=== PATIENT | female | born 1980 | race American Indian/Alaskan Native ===

== ENCOUNTER 2018-11-07 01:53 | Inpatient (IN) | payer OTHER, MEDICAID ==
--- NOTE | 2018-11-07 02:09 | History and Physical Report ---
History of Present Illness Date of examination: 11/07/18 (pt presents with PPROM @ 34w6d) History of present illness: EDC Confirmation: 12/13/2018 Gestational Age: 11 2/7 weeks Past History : 5 Term Births: 3 Premature Births: 0 Living Children: 3 Para: 3 Mult. Births: 0 Prev : 0 Aborta: 1 Elect. Ab: 0 Spont. Ab: 1 Ectopics: 0 # 1 Delivery date: 1995 Weeks Gestation: 37 labor: no Delivery type: Delivery location: [facility] Sex: Female weight: 5#3 # 2 Delivery date: 1999 Weeks Gestation: 40 labor: no Delivery type: Sex: Female weight: 6#14 # 3 Delivery date: 2004 Weeks Gestation: 37 labor: no Delivery type: Infant Sex: Female weight: 6#7 # 4 Delivery date: 2013 Weeks Gestation: 14 Delivery type: SAB Infant Sex: Male Comments: IUFD - D&C for placenta Past Medical History: Negative Past Medical History Past Surgical History: Salpingo-oophorectomy left side, 10/2017 Past Medical History 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 of genital herpes: yes Partner hx. of genital herpes: no Rash, Viral, or Febrile illness since last LMP? no Varicella/Chicken Pox Status: Previous Disease TB Risk: no Genetic History ADVANCED MATERNAL AGE Congenital Heart Defect: Mom: no Dad: no Stephany Disease: Mom: no Dad: no Thalassemia Mom: no Dad: no Neural Tube Defect Mom: no Dad: no Down's Syndrome Mom: no Dad: no Derik-Sachs Mom: no Dad: no Sickle Cell Disease/Trait Mom: no Dad: no Hemophilia Mom: no Dad: no Muscular Dystrophy Mom: no Dad: no Cystic Fibrosis Mom: no Dad: no [place] Chorea Mom: no Dad: no Mental Retardation Mom: no Dad: no Fragile X Mom: no Dad: no Other Genetic/Chromosomal Disorder Mom: no Dad: no Child w/other defect Mom: no Dad: no Enviromental Exposures Xray Exposure: no Medication, drug, or alcohol use since LMP: no Chemical/Other Exposure: no Exposure to Cat Liter: no Hx of Parvovirus (Fifth Disease): no Occupational Exposure to Children: none Active Medications (reviewed today): None Current Allergies (reviewed today): No known allergies Past History - Obstetrical History Expected Date of Delivery: 12/13/18 Actual Gestation: 34 Week(s) 6 Day(s) : 5 Para: 3 Hx # Term Pregnancies: 3 Number of Pregnancies: 0 Spontaneous Abortions: 1 (14wIUFD; D&C for placenta) Induced : 0 Number of Living Children: 3 Medications and Allergies Allergies Allergy/AdvReac Type Severity Reaction Status Date / Time No Known Allergies Allergy Verified 05/05/18 01:02 Home Medications Medication Instructions Recorded Confirmed Last Taken Type Vit-Fe Fumar-FA [ 1 tab PO QDAY 11/07/18 11/07/18 11/06/18 05:00 History Vitamin] Ranitidine HCl [Zantac] 150 mg PO QDAY 11/07/18 11/07/18 11/06/18 05:00 History - Vital Signs Vital signs: Vital Signs Pulse BP 74 112/59 11/07/18 02:03 11/07/18 02:03 Temp Pulse Resp BP Pulse Ox 74 112/59 11/07/18 02:03 11/07/18 02:03 - Physical Exam Breasts: Positive: deferred Cardiovascular: Regular rate, Normal S1, Normal S2 Lungs: Positive: Normal air movement Abdomen: Positive: normal appearance, soft, normal bowel sounds. Negative: distention, tenderness Genitourinary (Female): Positive: normal external genitalia Vulva: both: normal Vagina: Positive: normal moisture. Negative: discharge Cervix: Negative: lesion, discharge Uterus: Positive: normal size, normal contour Adnexa: both: normal Anus/Rectum: Positive: normal perianal skin, heme negative. Negative: rectal mass, hemorrhoids Extremities: Positive: normal Deep Tendon Reflex Grade: Normal +2 - Obstetrical FHR: category 1 Uterine Contraction Monitor Mode: External Cervical Dilatation: 1.5 Cervical Effacement Percentage: 40 station: -3 Uterine Contraction Pattern: Irregular Uterine Tone Measurement Phase: Resting Uterine Contraction Intensity: Mild Results All other labs normal. HBsAg Screen Negative Negative *1 RPR Non Reactive Non Reactive *2 Rubella Antibodies, IgG 5.31 index Immune >0.99 *3 Non-immune <0.90 Equivocal 0.90 - 0.99 Immune >0.99 ABO Grouping O *4 Rh Factor Positive *5 Please note: Prior records for this patient's ABO / Rh type are not available for additional verification. Antibody Screen See Final Results Negative *6 Tests: (2) Ab Scr+Antibody ID ([id number]) ! Antibody Screen [A] Positive Negative *7 ! Antibody Id. #1 Anti-Jk(a) Lara *8 ! Romario Titer #1 1 *9 If a numerical titer result has been reported, please note that this result is the reciprocal value of titer results formerly reported as 1:2,1:4, 1:8, etc. These results are now reported as 2, 4, 8, etc. The [employer] has recommended this change in titer reporting formats to simply reflect the reciprocal value of the titer. ! Antibody Id. #2 <No Reported Value> *10 ! Romario Titer #2 <No Reported Value> *11 Tests: (3) Profile I ([id number]) WBC 5.2 x10E3/uL 3.4-10.8 *12 RBC 4.12 x10E6/uL 3.77-5.28 *13 Hemoglobin [L] 10.7 g/dL 11.1-15.9 *14 Hematocrit [L] 33.5 % 34.0-46.6 *15 MCV 81 fL 79-97 *16 MCH [L] 26.0 pg 26.6-33.0 *17 MCHC 31.9 g/dL 31.5-35.7 *18 RDW 13.6 % 12.3-15.4 *19 Platelets 233 x10E3/uL 150-379 *20 Neutrophils 55 % Not Estab. *21 Lymphs 32 % Not Estab. *22 Monocytes 11 % Not Estab. *23 Eos 1 % Not Estab. *24 Basos 1 % Not Estab. *25 ! Immature Cells <No Reported Value> *26 Neutrophils (Absolute) 2.9 x10E3/uL 1.4-7.0 *27 Lymphs (Absolute) 1.7 x10E3/uL 0.7-3.1 *28 Monocytes(Absolute) 0.6 x10E3/uL 0.1-0.9 *29 Eos (Absolute) 0.0 x10E3/uL 0.0-0.4 *30 Baso (Absolute) 0.0 x10E3/uL 0.0-0.2 *31 ! Immature Granulocytes 0 % Not Estab. *32 ! Immature Grans (Abs) 0.0 x10E3/uL 0.0-0.1 *33 ! NRBC <No Reported Value> *34 Hematology Comments: <No Reported Value> *35 Tests: (4) AFP, Serum, Open Spina Bifida ([id number]) Results Report *36 ! Test Results: [A] *Screen Positive* *37 Gest. Age on Collection Date 15.4 weeks *38 ! Gestat. Age Based On JAIMEE *39 12/13/2018 Recalculations are not recommended when gestational dating by LMP and ultrasound are within 10 days. ! Maternal Age At JAIMEE 40.3 yr *40 ! Race Black *41 ! Weight 154 lbs *42 ! Insulin Dep Diabetes No *43 ! Multiple Gestation No *44 AFP Value 101.9 ng/mL *45 AFP MoM 3.29 *46 ! OSBR Risk 1 IN 147 *47 ! Interpretation SCOTT *48 Interpretation: Screen Positive for OSB This patient is at increased risk to have a baby with open spina bifida (OSB). The AFP MoM is calculated based on the gestational age provided, and is elevated. MS-AFP can identify up to 80% of open neural tube defects. Closed neural tube defects and some open defects may not be detected by this test. This test does not screen for Down syndrome or Trisomy 18. Recommendations: 1. Targeted ultrasound is recommended to verify gestational age, viability, number of fetuses, and to rule out anomalies. 2. If AFP is less than 3.0 MoM, repeating the AFP is an option to rule out transient elevations. 3. If this is a second elevation, or the AFP is greater than or equal to 3.0 MoM, targeted ultrasound, genetic counseling and amniocentesis are appropriate options. ! Comment: [facility] *49 Sheela Preston, Ph.D., [facility] Principal Genetics Licensed And Certified Midwife References: Available Upon Request. Multiples Of Median Cutoffs For AFP Elevations Perkins 2.5 Black 2.8 IDD 2.0 Twins 4.5 Abbreviation Definitions IDD - Insulin Dep Diabetes OSBR - Open Spina Bifida Risk For further inquiries contact [facility] at [phone]. Tests: (5) Panel [id number] ([id number]) HIV Screen 4th Generation wRfx Non Reactive Non Reactive *50 Tests: (6) HCV Ab w/Rflx to Verification ([id number]) ! HCV Ab 0.1 s/co ratio 0.0-0.9 *51 Tests: (7) Comment: ([id number]) ! Comment: [facility] *52 Non reactive HCV antibody screen is consistent with no HCV infection, unless recent infection is suspected or other evidence exists to indicate HCV infection. Tests: (8) Urine Culture, Routine ([id number]) Urine Culture, Routine Final report *53 Tests: (9) Result ([id number]) ! Result 1 No growth *54 Assessment and Plan 38 yo @ 34w6d with c/o SROM this AM 0100. RN called pt 1-2,6-,-2 with clear fluid coming from vagina. Orders placed US ordered for BOB and position.
[2018-11-07] MEDS ORDERED: MINERAL OIL PO PRN (02:16)
[2018-11-07] MEDS ORDERED: XYLOCAINE 2% INFILTRATI ONE (02:16)
[2018-11-07] MEDS ORDERED: SUBLIMAZE IV PRN (02:16)
[2018-11-07] MEDS ORDERED: AMPICILLIN/NS 2 GM/100 ML 2 GM/100 ML BAG IV ONE (02:16)
[2018-11-07] MEDS ORDERED: ZOFRAN IV PRN (02:16)
[2018-11-07] MEDS ORDERED: BRETHINE SUB-Q PRN (02:16)
[2018-11-07] MEDS ORDERED: PITOCin/NS 20 UNIT/1000ML DRIP 20 UNITS/1,000 ML BAG IV SCH (03:00)
[2018-11-07] MEDS ORDERED: CELESTONE SOLUSPAN IM SCH (03:05)
--- NOTE | 2018-11-07 04:48 | Progress Note ---
Assessment and Plan US done BOB 11.4, vertex cervical length 4cm Speculum exam done Negative pooling Nitrazine equivocal Ferning negative. Explained all findings to pt. Reassured Will continue IVFs, d/c ABX and 2nd dose BMZ. Will repeat BOB @ noon. Subjective - Subjective Date of service: 11/07/18 (no ctx noted on EFM) Principal diagnosis: IUP @ 34w6d with possible SROM Interval history: EDC Confirmation: 12/13/2018 Gestational Age: 11 2/7 weeks Past History : 5 Term Births: 3 Premature Births: 0 Living Children: 3 Para: 3 Mult. Births: 0 Prev : 0 Aborta: 1 Elect. Ab: 0 Spont. Ab: 1 Ectopics: 0 # 1 Delivery date: 1995 Weeks Gestation: 37 labor: no Delivery type: Delivery location: [facility] Infant Sex: Female weight: 5#3 # 2 Delivery date: 1999 Weeks Gestation: 40 labor: no Delivery type: Sex: Female weight: 6#14 # 3 Delivery date: 2004 Weeks Gestation: 37 labor: no Delivery type: Infant Sex: Female weight: 6#7 # 4 Delivery date: 2013 Weeks Gestation: 14 Delivery type: SAB Sex: Male Comments: IUFD - D&C for placenta Past Medical History: Negative Past Medical History Past Surgical History: Salpingo-oophorectomy left side, 10/2017 Past Medical History 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 of genital herpes: yes Partner hx. of genital herpes: no Rash, Viral, or Febrile illness since last LMP? no Varicella/Chicken Pox Status: Previous Disease TB Risk: no Genetic History ADVANCED MATERNAL AGE Congenital Heart Defect: Mom: no Dad: no Stephany Disease: Mom: no Dad: no Thalassemia Mom: no Dad: no Neural Tube Defect Mom: no Dad: no Down's Syndrome Mom: no Dad: no Derik-Sachs Mom: no Dad: no Sickle Cell Disease/Trait Mom: no Dad: no Hemophilia Mom: no Dad: no Muscular Dystrophy Mom: no Dad: no Cystic Fibrosis Mom: no Dad: no [place] Chorea Mom: no Dad: no Mental Retardation Mom: no Dad: no Fragile X Mom: no Dad: no Other Genetic/Chromosomal Disorder Mom: no Dad: no Child w/other defect Mom: no Dad: no Enviromental Exposures Xray Exposure: no Medication, drug, or alcohol use since LMP: no Chemical/Other Exposure: no Exposure to Cat Liter: no Hx of Parvovirus (Fifth Disease): no Occupational Exposure to Children: none Active Medications (reviewed today): None Current Allergies (reviewed today): No known allergies Patient reports: movement normal Objective - Vital Signs Vital Signs: Vital Signs - 12hr 11/07/18 11/07/18 11/07/18 02:03 02:05 02:06 Temperature 98.9 F Pulse Rate 74 78 Respiratory 16 Rate Blood Pressure 112/59 O2 Sat by Pulse 100 Oximetry 11/07/18 11/07/18 11/07/18 02:11 02:16 02:21 Temperature Pulse Rate 79 76 73 Respiratory Rate Blood Pressure O2 Sat by Pulse 100 98 99 Oximetry 11/07/18 11/07/18 11/07/18 02:26 02:51 02:55 Temperature Pulse Rate 74 70 73 Respiratory Rate Blood Pressure O2 Sat by Pulse 98 97 98 Oximetry 11/07/18 11/07/18 11/07/18 03:00 03:05 03:11 Temperature Pulse Rate 83 65 72 Respiratory Rate Blood Pressure O2 Sat by Pulse 98 99 98 Oximetry 11/07/18 11/07/18 11/07/18 03:16 03:19 03:20 Temperature Pulse Rate 78 70 77 Respiratory Rate Blood Pressure 96/52 O2 Sat by Pulse 98 97 Oximetry 11/07/18 11/07/18 11/07/18 03:25 03:36 03:37 Temperature Pulse Rate 102 H 72 66 Respiratory Rate Blood Pressure O2 Sat by Pulse 99 92 99 Oximetry 11/07/18 11/07/18 11/07/18 03:42 03:43 03:47 Temperature Pulse Rate 106 H 87 82 Respiratory Rate Blood Pressure O2 Sat by Pulse 100 69 L 100 Oximetry 11/07/18 11/07/18 11/07/18 03:52 03:56 04:02 Temperature Pulse Rate 103 H 64 77 Respiratory Rate Blood Pressure O2 Sat by Pulse 99 99 99 Oximetry - Exam Breasts: deferred Cardiovascular: Regular rate Lungs: Normal air movement Abdomen: Present: normal appearance, soft. Absent: distention, tenderness Vulva: both: normal (milky clear d/c noted on perineum) Uterus: Present: normal FHR: auscultation normal, category 1 Uterine Contraction Monitor Mode: External Cervical Dilatation: 1.5 (minimal fluid noted; speculum exam) Cervical Effacement Percentage: 60 station: -2 Uterine Contraction Pattern: Irregular Uterine Tone Measurement Phase: Resting Uterine Contraction Intensity: Mild Extremities: normal Deep Tendon Reflex Grade: Normal +2
--- NOTE | 2018-11-07 05:02 | Ultrasound Report ---
EXAM: US OB FOLLOW UP HISTORY: PPROM @ 34 weeks TECHNIQUE: Lozano scale imaging, duplex Doppler and color flow Doppler imaging are performed with a cur vilinear transducer. COMPARISON: None available. FINDINGS: There is a single IUP in cephalic presentation. The estimated heart rate is 138 beats per minut e. No gross anomaly is seen at this time (very limited views of the anatomy). The following biometric measurements are obtained: BPD 8.08 cm (32 weeks 3 days ) HC 31.00 cm (34 weeks 4 days) AC 29.47 cm (33 weeks 3 days) FL 6.38 cm (33 weeks 0 days) The estimated composite gestational age is 33 weeks, 3 days, plus/minus standard deviation. The JAIMEE i s 12/23/2018. The biometric ratios are within normal limits: Cephalic index 76.9; HC/AC 1.05; FL/BPD 79 ; FL/HC 20.6; FL/AC 21.6. The estimated composite gestational age is 2173 g +/-322 g or 4 lbs. 13 oz. +/-11 ounces (12%). There is a posterior placenta, without evidence for placenta previa or abruption. The cervical length is within normal limits, measuring approximately 4.4 cm. There is no evidence for cervical incompete nce. The amniotic fluid index measures 11.4 cm (right upper quadrant 2.6 cm; right lower quadrant 2 cm; le ft lower quadrant 3.1 cm; left upper quadrant 3.8 cm), which is within normal limits. The ovaries are not visualized. No free fluid is seen in the pelvis. IMPRESSION: 1. Single live IUP in cephalic presentation. 2. Estimated gestational age of 33 weeks, 3 days plus/minus standard deviation. The JAIMEE is 12/23/2018. 3. The estimated heart rate is 138 beats per minute. 4. No gross anomaly is seen at this time (Limited views of the anatomy). 5. Posterior placenta without evidence for placental previa or abruption. 6. The amniotic fluid volume is within normal limits. 7. The cervical length is within normal limits, measuring approximately 4.4 cm. 8. The ovaries are not visualized. 9. No free fluid is seen in the pelvis. This document is electronically signed by Michela Cardoza MD., November 07 2018 05:00:26 AM ET
[2018-11-07] MEDS ORDERED: AMPICILLIN/NS 1 GM/50 ML 1 GM/50 ML BAG IV SCH (06:18)
[2018-11-07 11:15] LABS: Bilirubin,Urine NEG (Negative); Blood,Urine NEG (Negative); Color,Urine Yellow (Yellow); Mucus,Urine FEW /HPF
--- NOTE | 2018-11-07 13:38 | Progress Note ---
Assessment and Plan Discussed US findings with pt and her family. They are aware decrease can be from further LOF or may be the difference in tech. Reassured 7 is still wnl. Offered to allow d/c and she could come back @ 24hrs for 2nd dose BMZ or she can remain here receive steroids and have f/u US in AM. Pt request to stay in house. given report and POC. New orders in EMR. Pt is to report any further loss of fluid to RN, report any vaginal bleeding, ctx, or decrease in FM. All questions addressed. Subjective - Subjective Date of service: 11/07/18 (repeat BOB 7.4) Principal diagnosis: IUP @ 34w6d with possible SROM Interval history: EDC Confirmation: 12/13/2018 Gestational Age: 11 2/7 weeks Past History : 5 Term Births: 3 Premature Births: 0 Living Children: 3 Para: 3 Mult. Births: 0 Prev : 0 Aborta: 1 Elect. Ab: 0 Spont. Ab: 1 Ectopics: 0 # 1 Delivery date: 1995 Weeks Gestation: 37 labor: no Delivery type: Delivery location: [facility] Sex: Female weight: 5#3 # 2 Delivery date: 1999 Weeks Gestation: 40 labor: no Delivery type: Infant Sex: Female weight: 6#14 # 3 Delivery date: 2004 Weeks Gestation: 37 labor: no Delivery type: Sex: Female weight: 6#7 # 4 Delivery date: 2013 Weeks Gestation: 14 Delivery type: SAB Infant Sex: Male Comments: IUFD - D&C for placenta Past Medical History: Negative Past Medical History Past Surgical History: Salpingo-oophorectomy left side, 10/2017 Past Medical History 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 of genital herpes: yes Partner hx. of genital herpes: no Rash, Viral, or Febrile illness since last LMP? no Varicella/Chicken Pox Status: Previous Disease TB Risk: no Genetic History ADVANCED MATERNAL AGE Congenital Heart Defect: Mom: no Dad: no Stephany Disease: Mom: no Dad: no Thalassemia Mom: no Dad: no Neural Tube Defect Mom: no Dad: no Down's Syndrome Mom: no Dad: no Derik-Sachs Mom: no Dad: no Sickle Cell Disease/Trait Mom: no Dad: no Hemophilia Mom: no Dad: no Muscular Dystrophy Mom: no Dad: no Cystic Fibrosis Mom: no Dad: no [place] Chorea Mom: no Dad: no Mental Retardation Mom: no Dad: no Fragile X Mom: no Dad: no Other Genetic/Chromosomal Disorder Mom: no Dad: no Child w/other defect Mom: no Dad: no Enviromental Exposures Xray Exposure: no Medication, drug, or alcohol use since LMP: no Chemical/Other Exposure: no Exposure to Cat Liter: no Hx of Parvovirus (Fifth Disease): no Occupational Exposure to Children: none Active Medications (reviewed today): None Current Allergies (reviewed today): No known allergies Patient reports: loss of fluid (pt states she has not had any leaking of fluid since early this morning @ 0800), movement normal Objective - Vital Signs Vital Signs: Vital Signs - 12hr 11/07/18 11/07/18 11/07/18 02:03 02:05 02:06 Temperature 98.9 F Pulse Rate 74 78 Respiratory 16 Rate Blood Pressure 112/59 O2 Sat by Pulse 100 Oximetry 11/07/18 11/07/18 11/07/18 02:11 02:16 02:21 Temperature Pulse Rate 79 76 73 Respiratory Rate Blood Pressure O2 Sat by Pulse 100 98 99 Oximetry 11/07/18 11/07/18 11/07/18 02:26 02:51 02:55 Temperature Pulse Rate 74 70 73 Respiratory Rate Blood Pressure O2 Sat by Pulse 98 97 98 Oximetry 11/07/18 11/07/18 11/07/18 03:00 03:05 03:11 Temperature Pulse Rate 83 65 72 Respiratory Rate Blood Pressure O2 Sat by Pulse 98 99 98 Oximetry 11/07/18 11/07/18 11/07/18 03:16 03:19 03:20 Temperature Pulse Rate 78 70 77 Respiratory Rate Blood Pressure 96/52 O2 Sat by Pulse 98 97 Oximetry 11/07/18 11/07/18 11/07/18 03:25 03:36 03:37 Temperature Pulse Rate 102 H 72 66 Respiratory Rate Blood Pressure O2 Sat by Pulse 99 92 99 Oximetry 11/07/18 11/07/18 11/07/18 03:42 03:43 03:47 Temperature Pulse Rate 106 H 87 82 Respiratory Rate Blood Pressure O2 Sat by Pulse 100 69 L 100 Oximetry 11/07/18 11/07/18 11/07/18 03:52 03:56 04:02 Temperature Pulse Rate 103 H 64 77 Respiratory Rate Blood Pressure O2 Sat by Pulse 99 99 99 Oximetry 11/07/18 11/07/18 11/07/18 04:53 07:30 07:56 Temperature 98.4 F Pulse Rate 62 73 Respiratory 18 Rate Blood Pressure 95/52 96/51 O2 Sat by Pulse Oximetry 11/07/18 11/07/18 11/07/18 10:04 10:57 13:26 Temperature 98.0 F Pulse Rate 83 94 H Respiratory 18 Rate Blood Pressure 118/57 92/56 O2 Sat by Pulse Oximetry - Exam Breasts: deferred Cardiovascular: Regular rate Lungs: Normal air movement Abdomen: Present: normal appearance, soft, normal bowel sounds. Absent: distention, tenderness Vulva: both: normal (perineum is dry @ this time) Uterus: Present: normal FHR: auscultation normal, category 1 Uterine Contraction Monitor Mode: External Uterine Contraction Pattern: Irregular Uterine Tone Measurement Phase: Resting Uterine Contraction Intensity: Mild Extremities: normal Deep Tendon Reflex Grade: Normal +2 - Labs Labs: Abnormal Labs 11/07/18 10:55 Urine WBC (Auto) 10.0 H Laboratory Results - last 24 hr 11/07/18 10:55 Urine Color Yellow Urine Turbidity Slightly-cloudy Urine pH 6.0 Ur Specific [place] 1.015 Urine Protein 30 mg/dl Urine Glucose (UA) >=500 Urine Ketones 80 Urine Blood Neg Urine Nitrite Neg Urine Bilirubin Neg Urine Urobilinogen 4.0 Ur Leukocyte Esterase Sm Urine WBC (Auto) 10.0 H Urine RBC (Auto) 9.0 U Epithel Cells (Auto) 7.0 Urine Mucus Few
[2018-11-07] MEDS ORDERED: CELESTONE SOLUSPAN IM ONE (13:45)
--- NOTE | 2018-11-07 15:49 | Event Note ---
Date: 11/07/18 Pt admitted suspected SROM at 34.6 wks. Triage exam notes pooling and +nitatazine by RN.Exam by MW 2hours later shows no ferning, no pooling, and equivical nitazine. F/u BOB 12hrs later is normal but is less than admission. Pt baseline BOB with AMFM has been between 9 to 10cm. Will con't anitbx for now and give second dose of steroids due at 0300 on 11/07/18. Pt as per MW has not c/o LOF or bleeding since admission. No S/Sx of infection at this time.
[2018-11-07] MEDS: AMPICILLIN/NS 2 GM/100 ML 2 GM/100 ML BAG IV SCH ×2 (17:04→23:44)
[2018-11-07] MEDS: LACTATED RINGERS 1,000 ML IV SCH (17:05)
--- NOTE | 2018-11-07 17:42 | Ultrasound Report ---
PROCEDURE: US OB LIMITED TECHNIQUE: Ultrasound obstetrical limited HISTORY: Reassess fluid COMPARISONS: FINDINGS: Single live intrauterine gestation present in cephalic presentation cardiac activity present with heart rate of 148 bpm Amniotic fluid index is 7 cm in the low-normal range IMPRESSION: Amniotic fluid index 7 cm in the low normal range. This document is electronically signed by Atilio Lu MD., November 07 2018 05:41:03 PM ET
[2018-11-07 18:03] LABS: Hematocrit 33.2 % (30.3-42.9); Hemoglobin 11.4 gm/dl (10.1-14.3); Mean Corpuscular HGB Conc 34 % (30-34); Mean Corpuscular Volume 84 fl (79-97); Platelet Count 208 K/mm3 (140-440); Red Blood Count 3.93 M/mm3 (3.65-5.03); Red Cell Distribution Width 13.7 % (13.2-15.2)
[2018-11-07 19:40] LABS: Band Neutrophils # (Manual) 0.1 K/mm3; Basophils % (Manual) 0 % (0.0-1.8); Eosinophils % (Manual) 0 % (0.0-4.3); Total Cells Counted 100
[2018-11-07 19:41] LABS: Hypochromasia 1+
[2018-11-08] MEDS ORDERED: CELESTONE SOLUSPAN IM ONE (03:00)
--- NOTE | 2018-11-08 06:08 | Progress Note ---
Assessment and Plan - Patient Problems (1) 35 weeks gestation of Onset Date: ~11/08/18 Current Visit: Yes Status: Acute Plan to address problem: Made pt aware of US results and plan to move forward with delivery, IOL. SVE 3,50,-3 Will start pitocin after pt has breakfast and AM care. All questions addressed. NICU aware. Subjective - Subjective Date of service: 11/08/18 (pt denies any LOF No ctx) Principal diagnosis: IUP @ 35w0d with PPROM BOB this morning 2.2 Interval history: EDC Confirmation: 12/13/2018 Gestational Age: 11 2/7 weeks Past History : 5 Term Births: 3 Premature Births: 0 Living Children: 3 Para: 3 Mult. Births: 0 Prev : 0 Aborta: 1 Elect. Ab: 0 Spont. 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 of genital herpes: yes Partner hx. of genital herpes: no Rash, Viral, or Febrile illness since last LMP? no Varicella/Chicken Pox Status: Previous Disease TB Risk: no Genetic History ADVANCED MATERNAL AGE Congenital Heart Defect: Mom: no Dad: no Stephany Disease: Mom: no Dad: no Thalassemia Mom: no Dad: no Neural Tube Defect Mom: no Dad: no Down's Syndrome Mom: no Dad: no Derik-Sachs Mom: no Dad: no Sickle Cell Disease/Trait Mom: no Dad: no Hemophilia Mom: no Dad: no Muscular Dystrophy Mom: no Dad: no Cystic Fibrosis Mom: no Dad: no Morrill Chorea Mom: no Dad: no Mental Retardation Mom: no Dad: no Fragile X Mom: no Dad: no Other Genetic/Chromosomal Disorder Mom: no Dad: no Child w/other defect Mom: no Dad: no Enviromental Exposures Xray Exposure: no Medication, drug, or alcohol use since LMP: no Chemical/Other Exposure: no Exposure to Cat Liter: no Hx of Parvovirus (Fifth Disease): no Occupational Exposure to Children: none Active Medications (reviewed today): None Current Allergies (reviewed today): No known allergies Patient reports: movement normal Objective - Vital Signs Vital Signs: Vital Signs - 12hr 11/07/18 11/07/18 11/07/18 20:21 20:26 20:31 Temperature Pulse Rate 71 82 80 Blood Pressure O2 Sat by Pulse 99 99 98 Oximetry 11/07/18 11/07/18 11/07/18 20:36 20:41 20:46 Temperature Pulse Rate 87 77 85 Blood Pressure O2 Sat by Pulse 99 99 98 Oximetry 11/07/18 11/07/18 11/07/18 20:51 20:56 21:01 Temperature Pulse Rate 79 77 86 Blood Pressure O2 Sat by Pulse 98 99 99 Oximetry 11/07/18 11/07/18 11/07/18 21:06 21:22 21:28 Temperature Pulse Rate 82 67 67 Blood Pressure 100/72 O2 Sat by Pulse 99 100 Oximetry 11/07/18 11/07/18 11/07/18 21:45 23:55 23:56 Temperature 97.6 F Pulse Rate 62 60 Blood Pressure 107/55 O2 Sat by Pulse 98 Oximetry 11/08/18 11/08/18 11/08/18 00:00 00:05 00:10 Temperature Pulse Rate 72 65 75 Blood Pressure O2 Sat by Pulse 98 97 98 Oximetry 11/08/18 11/08/18 11/08/18 00:15 00:20 00:25 Temperature Pulse Rate 89 81 72 Blood Pressure O2 Sat by Pulse 98 99 100 Oximetry 11/08/18 11/08/18 11/08/18 00:30 00:35 00:40 Temperature Pulse Rate 84 78 63 Blood Pressure O2 Sat by Pulse 99 99 98 Oximetry 11/08/18 11/08/18 11/08/18 00:45 00:50 00:55 Temperature Pulse Rate 73 71 74 Blood Pressure O2 Sat by Pulse 98 97 97 Oximetry 11/08/18 11/08/18 11/08/18 01:00 01:05 01:10 Temperature Pulse Rate 80 77 75 Blood Pressure O2 Sat by Pulse 97 97 97 Oximetry 11/08/18 11/08/18 11/08/18 01:15 01:20 01:25 Temperature Pulse Rate 77 77 72 Blood Pressure O2 Sat by Pulse 96 96 97 Oximetry 11/08/18 11/08/18 11/08/18 01:30 01:35 01:40 Temperature Pulse Rate 71 75 68 Blood Pressure O2 Sat by Pulse 97 97 98 Oximetry 11/08/18 11/08/18 11/08/18 01:45 01:50 01:55 Temperature Pulse Rate 73 81 76 Blood Pressure O2 Sat by Pulse 97 97 97 Oximetry 11/08/18 11/08/18 11/08/18 02:00 02:05 04:54 Temperature Pulse Rate 78 72 73 Blood Pressure 90/52 O2 Sat by Pulse 97 98 Oximetry - Exam Breasts: deferred Cardiovascular: Regular rate Lungs: Normal air movement Abdomen: Present: normal appearance, soft. Absent: distention, tenderness Uterus: Present: normal FHR: auscultation normal Uterine Contraction Monitor Mode: External Cervical Dilatation: 3 (blood tinged fluid noted @ time of exam) Cervical Effacement Percentage: 50 station: -3 Extremities: normal Deep Tendon Reflex Grade: Normal +2 - Labs Labs: Abnormal Labs 11/07/18 11/07/18 10:55 17:46 Seg Neuts % (Manual) 84.0 H Lymphocytes % (Manual) 11.0 L Lymphocytes # (Manual) 0.8 L Urine WBC (Auto) 10.0 H Laboratory Results - last 24 hr 11/07/18 11/07/18 11/07/18 10:55 17:40 17:46 WBC 7.2 RBC 3.93 Hgb 11.4 Hct 33.2 MCV 84 MCH 29 MCHC 34 RDW 13.7 Plt Count 208 Add Manual Diff Complete Total Counted 100 Seg Neuts % (Manual) 84.0 H Band Neutrophils % 2.0 Lymphocytes % (Manual) 11.0 L Reactive Lymphs % (Man) 0 Monocytes % (Manual) 3.0 Eosinophils % (Manual) 0 Basophils % (Manual) 0 Metamyelocytes % 0 Myelocytes % 0 Promyelocytes % 0 Blast Cells % 0 Nucleated RBC % Not Reportable Seg Neutrophils # Man 6.0 Band Neutrophils # 0.1 Lymphocytes # (Manual) 0.8 L Abs React Lymphs (Man) 0.0 Monocytes # (Manual) 0.2 Eosinophils # (Manual) 0.0 Basophils # (Manual) 0.0 Metamyelocytes # 0.0 Myelocytes # 0.0 Promyelocytes # 0.0 Blast Cells # 0.0 Hypersegmented Neuts Not Reportable Hyposegmented Neuts Not Reportable Hypogranular Neuts Not Reportable Smudge Cells Not Reportable Toxic Granulation Not Reportable Toxic Vacuolation Not Reportable Dohle Bodies Not Reportable Pelger-Huet Anomaly Not Reportable Duy Rods Not Reportable Platelet Estimate Appears normal Clumped Platelets Not Reportable Plt Clumps, EDTA Not Reportable Large Platelets Not Reportable Giant Platelets Not Reportable Platelet Satelliting Not Reportable Plt Morphology Comment Not Reportable RBC Morphology Not Reportable Dimorphic RBCs Not Reportable Polychromasia Not Reportable Hypochromasia 1+ Poikilocytosis Not Reportable Anisocytosis Not Reportable Microcytosis Not Reportable Macrocytosis Not Reportable Spherocytes Not Reportable Pappenheimer Bodies Not Reportable Sickle Cells Not Reportable Target Cells Not Reportable Tear Drop Cells Not Reportable Ovalocytes Not Reportable Helmet Cells Not Reportable Carballo-[place] Bodies Not Reportable [place] Rings Not Reportable Osteen Cells Not Reportable Bite Cells Not Reportable Crenated Cell Not Reportable Elliptocytes Not Reportable Acanthocytes (Spur) Not Reportable Rouleaux Not Reportable Hemoglobin C Crystals Not Reportable Schistocytes Not Reportable Malaria parasites Not Reportable Eric Bodies Not Reportable Hem Pathologist Commnt No Urine Color Yellow Urine Turbidity Slightly-cloudy Urine pH 6.0 Ur Specific Adrian 1.015 Urine Protein 30 mg/dl Urine Glucose (UA) >=500 Urine Ketones 80 Urine Blood Neg Urine Nitrite Neg Urine Bilirubin Neg Urine Urobilinogen 4.0 Ur Leukocyte Esterase Sm Urine WBC (Auto) 10.0 H Urine RBC (Auto) 9.0 U Epithel Cells (Auto) 7.0 Urine Mucus Few Blood Type O POSITIVE Antibody Screen Positive Antibody Identification Anti-Jka
--- NOTE | 2018-11-08 06:56 | Ultrasound Report ---
EXAM: US OB LIMITED HISTORY: Vaginal leaking TECHNIQUE: Lozano scale imaging, duplex Doppler and color flow Doppler imaging are performed with a cur vilinear transducer. COMPARISON: None available. FINDINGS: There is a single IUP in cephalic presentation. The estimated heart rate is 130 beats per minut e. No gross anomaly is seen at this time. The amniotic fluid index measures 2.8 cm (5.4 mm; 1.06 cm; 7.6 mm; and 4.3 mm), which is abnormally l ow (oligohydramnios); rule out premature rupture of membranes. The ovaries are not visualized. No free fluid is seen in the pelvis. IMPRESSION: Single live IUP in cephalic presentation. The estimated heart rate is 130 beats per minute. The amniotic fluid index measures 2.8 cm (5.4 mm; 1.06 cm; 7.6 mm; and 4.3 mm), which is abnormally l ow (oligohydramnios); rule out premature rupture of membranes. This document is electronically signed by Michela Cardoza MD., November 08 2018 06:54:01 AM ET
--- NOTE | 2018-11-08 09:28 | Progress Note ---
Assessment and Plan Patient eating breakfast, denies any complaints at this time. Reports continued LOF, clear, denies contractions or VB, +FM. Reviewed POC with patient, pitocin to start after she is finished eating. Questions encouraged and addressed. Subjective - Subjective Date of service: 11/08/18 Principal diagnosis: IUP @ 35w0d with PPROM BOB this morning 2.2 Patient reports: loss of fluid, movement normal, no new complaints Objective - Vital Signs Vital Signs: Vital Signs - 12hr 11/07/18 11/07/18 11/07/18 21:22 21:28 21:45 Temperature 97.6 F Pulse Rate 67 67 Blood Pressure 100/72 O2 Sat by Pulse 100 Oximetry 11/07/18 11/07/18 11/08/18 23:55 23:56 00:00 Temperature Pulse Rate 62 60 72 Blood Pressure 107/55 O2 Sat by Pulse 98 98 Oximetry 11/08/18 11/08/18 11/08/18 00:05 00:10 00:15 Temperature Pulse Rate 65 75 89 Blood Pressure O2 Sat by Pulse 97 98 98 Oximetry 11/08/18 11/08/18 11/08/18 00:20 00:25 00:30 Temperature Pulse Rate 81 72 84 Blood Pressure O2 Sat by Pulse 99 100 99 Oximetry 11/08/18 11/08/18 11/08/18 00:35 00:40 00:45 Temperature Pulse Rate 78 63 73 Blood Pressure O2 Sat by Pulse 99 98 98 Oximetry 11/08/18 11/08/18 11/08/18 00:50 00:55 01:00 Temperature Pulse Rate 71 74 80 Blood Pressure O2 Sat by Pulse 97 97 97 Oximetry 11/08/18 11/08/18 11/08/18 01:05 01:10 01:15 Temperature Pulse Rate 77 75 77 Blood Pressure O2 Sat by Pulse 97 97 96 Oximetry 11/08/18 11/08/18 11/08/18 01:20 01:25 01:30 Temperature Pulse Rate 77 72 71 Blood Pressure O2 Sat by Pulse 96 97 97 Oximetry 11/08/18 11/08/18 11/08/18 01:35 01:40 01:45 Temperature Pulse Rate 75 68 73 Blood Pressure O2 Sat by Pulse 97 98 97 Oximetry 11/08/18 11/08/18 11/08/18 01:50 01:55 02:00 Temperature Pulse Rate 81 76 78 Blood Pressure O2 Sat by Pulse 97 97 97 Oximetry 11/08/18 11/08/18 11/08/18 02:05 04:54 07:12 Temperature Pulse Rate 72 73 71 Blood Pressure 90/52 98/56 O2 Sat by Pulse 98 Oximetry 11/08/18 11/08/18 07:43 08:00 Temperature 97.9 F Pulse Rate 71 Blood Pressure 100/64 O2 Sat by Pulse Oximetry - Exam Cardiovascular: Regular rate, Normal S1, Normal S2 Lungs: Clear to auscultation, Normal air movement Abdomen: Present: normal appearance, soft, normal bowel sounds. Absent: distention, tenderness Uterus: Present: normal FHR: auscultation normal - Labs Labs: Abnormal Labs 11/07/18 11/07/18 10:55 17:46 Seg Neuts % (Manual) 84.0 H Lymphocytes % (Manual) 11.0 L Lymphocytes # (Manual) 0.8 L Urine WBC (Auto) 10.0 H Laboratory Results - last 24 hr 11/07/18 11/07/18 11/07/18 10:55 17:40 17:46 WBC 7.2 RBC 3.93 Hgb 11.4 Hct 33.2 MCV 84 MCH 29 MCHC 34 RDW 13.7 Plt Count 208 Add Manual Diff Complete Total Counted 100 Seg Neuts % (Manual) 84.0 H Band Neutrophils % 2.0 Lymphocytes % (Manual) 11.0 L Reactive Lymphs % (Man) 0 Monocytes % (Manual) 3.0 Eosinophils % (Manual) 0 Basophils % (Manual) 0 Metamyelocytes % 0 Myelocytes % 0 Promyelocytes % 0 Blast Cells % 0 Nucleated RBC % Not Reportable Seg Neutrophils # Man 6.0 Band Neutrophils # 0.1 Lymphocytes # (Manual) 0.8 L Abs React Lymphs (Man) 0.0 Monocytes # (Manual) 0.2 Eosinophils # (Manual) 0.0 Basophils # (Manual) 0.0 Metamyelocytes # 0.0 Myelocytes # 0.0 Promyelocytes # 0.0 Blast Cells # 0.0 Hypersegmented Neuts Not Reportable Hyposegmented Neuts Not Reportable Hypogranular Neuts Not Reportable Smudge Cells Not Reportable Toxic Granulation Not Reportable Toxic Vacuolation Not Reportable Dohle Bodies Not Reportable Pelger-Huet Anomaly Not Reportable Duy Rods Not Reportable Platelet Estimate Appears normal Clumped Platelets Not Reportable Plt Clumps, EDTA Not Reportable Large Platelets Not Reportable Giant Platelets Not Reportable Platelet Satelliting Not Reportable Plt Morphology Comment Not Reportable RBC Morphology Not Reportable Dimorphic RBCs Not Reportable Polychromasia Not Reportable Hypochromasia 1+ Poikilocytosis Not Reportable Anisocytosis Not Reportable Microcytosis Not Reportable Macrocytosis Not Reportable Spherocytes Not Reportable Pappenheimer Bodies Not Reportable Sickle Cells Not Reportable Target Cells Not Reportable Tear Drop Cells Not Reportable Ovalocytes Not Reportable Helmet Cells Not Reportable Carballo-[place] Bodies Not Reportable [place] Rings Not Reportable Umer Cells Not Reportable Bite Cells Not Reportable Crenated Cell Not Reportable Elliptocytes Not Reportable Acanthocytes (Spur) Not Reportable Rouleaux Not Reportable Hemoglobin C Crystals Not Reportable Schistocytes Not Reportable Malaria parasites Not Reportable Eric Bodies Not Reportable Hem Pathologist Commnt No Urine Color Yellow Urine Turbidity Slightly-cloudy Urine pH 6.0 Ur Specific Comfort 1.015 Urine Protein 30 mg/dl Urine Glucose (UA) >=500 Urine Ketones 80 Urine Blood Neg Urine Nitrite Neg Urine Bilirubin Neg Urine Urobilinogen 4.0 Ur Leukocyte Esterase Sm Urine WBC (Auto) 10.0 H Urine RBC (Auto) 9.0 U Epithel Cells (Auto) 7.0 Urine Mucus Few Blood Type O POSITIVE Antibody Screen Positive Antibody Identification Anti-Jka
[2018-11-08] MEDS: LACTATED RINGERS 1,000 ML IV SCH (12:07)
[2018-11-08] MEDS: PITOCin/NS 30 UNIT/500ML 30 UNITS/500 ML BAG IV SCH ×2 (12:08→13:45)
--- NOTE | 2018-11-08 13:52 | Event Note ---
Date: 11/08/18 Patient reports she is comfortable, occasional contractions, she denies pain, just "noticeable". Unable to monitor contractions on TOCO d/t patient position. DWP pros and cons of internal monitoring, she agrees to placement of IUPC at this time. IUPC placed without difficulty, SVE 3.5/50/-3, vertex. Pitocin currently at 8mu/min, will continue to increase per protocol. Patient denies any s/s of herpes outbreak or prodromal signs. No lesions visualized. Patient is afebrile, cat 1 tracing at this time. Continue current POC. Dr. Rodriguez upd ed on assessment.
[2018-11-08] MEDS ORDERED: BICITRA PO ONE (16:55)
[2018-11-08] MEDS ORDERED: PEPCID IV ONE (16:55)
[2018-11-08] MEDS ORDERED: REGLAN IV ONE (16:55)
[2018-11-08] MEDS ORDERED: LACTATED RINGERS 1,000 ML IV SCH (17:00)
[2018-11-08] MEDS ORDERED: ANCEF/STERILE WATER 2 GM/20 ML 2 GM/20 ML SYRINGE IV NR (17:00)
[2018-11-08] MEDS ORDERED: PITOCin/NS 20 UNIT/1000ML DRIP 20 UNITS/1,000 ML BAG IV SCH ×2 (17:00→21:40)
--- NOTE | 2018-11-08 17:19 | Anesthesia Consultation ---
Anesthesia Consult and Med Hx Date of service: 11/08/18 - Airway Anesthetic Teeth Evaluation: Good (some missing teeth) ROM Head & Neck: Adequate Mental/Hyoid Distance: Adequate Mallampati Class: Class II Intubation Access Assessment: Probably Good - Pre-Operative Health Status ASA Pre-Surgery Classification: ASA2 Proposed Anesthetic Plan: Epidural, Spinal - Pulmonary Hx Asthma: No COPD: No Hx Pneumonia: No - Cardiovascular System Hx Hypertension: No - Central Nervous System Hx Seizures: No Hx Psychiatric Problems: Yes (bipolar (no meds- in 2014)) - Endocrine Hx Renal Disease: No Hx End Stage Renal Disease: No Hx Hypothyroidism: No Hx Hyperthyroidism: No - Hematic Hx Anemia: No Hx Sickle Cell Disease: No - Other Systems Hx Alcohol Use: No - Additional Comments Anesthesia Medical History Comments: pt stating that she had some sort of allergy during GA at 2017 at [facility] with face swelling. It was not determined the source
--- NOTE | 2018-11-08 17:25 | Anesthesia Day of Surgery ---
Anesthesia Day of Surgery - Day of Surgery Patient Examined: Yes Patient H&P Reviewed: Yes Patient is NPO: Yes
[2018-11-08] MEDS ORDERED: PHENERGAN PR PRN (17:26)
[2018-11-08] MEDS ORDERED: DILAUDID IV PRN ×3 (17:26→22:44)
[2018-11-08] MEDS ORDERED: NARCAN 0.4 MG/1 ML IV PRN ×2 (17:26→21:40)
[2018-11-08] MEDS ORDERED: BENADRYL IV PRN (17:26)
[2018-11-08] MEDS ORDERED: ZOFRAN IV PRN ×2 (17:26→21:40)
[2018-11-08] MEDS ORDERED: TORADOL IV PRN (17:26)
[2018-11-08] MEDS ORDERED: PHENERGAN PO PRN (17:26)
--- NOTE | 2018-11-08 17:32 | Event Note ---
Date: 11/08/18 SVE 4.5/70/-2. Pitocin at 8mu/min, Late decelerations noted again, pitocin discontinued . Dr. Rodriguez notified. C/s called. Pt being prepped. Orders in EMR. NICU and Anesthesia aware. Pt desires BTL.
--- NOTE | 2018-11-08 17:38 | Event Note ---
Date: 11/08/18 Patient informed the risks of the surgery include bleeding possibly bleeding heavy enough to require blood transfusion, infection possible damage to bowel bladder ureter. Patient desires permanent sterilization. She declined temporary contraceptives. She understands that this surgery would make her permanently sterile. She also understands the approximate 1% failure rate. The patient understands all the above and desires to proceed.
[2018-11-08] MEDS ORDERED: SODIUM CHLORIDE FLUSH SYRINGE 10 ML IV SCH (18:00)
[2018-11-08] MEDS ORDERED: NEO SYNEPHRINE/NS Syringe(OR USE) IV ONE (18:13)
[2018-11-08] MEDS ORDERED: XYLOCAINE MPF 2% ONE ×3 (19:07)
--- NOTE | 2018-11-08 19:41 | Operative Report ---
Operative Report Operative Report: Date of procedure: 11/08/2018 Pre-operative diagnosis: Intrauterine at 35 weeks with prematu re rupture of membrane with nonreasurring heart tracing remote from vaginal delivery and desires permanent sterilization Post-operative diagnosis: Same plus multiple leiomyomas Procedure name(s): Prinary low transverse section with right partial salpingectomy Surgeon: Ender Rodriguez MD Wet Finisher: Anesthesia: Spinal EBL: 700 mL Complications: none Findings: Multiple leiomyomata, surgically absent left adnexa normal right fallopian tube Male infant carley 4lbs 5 oz Specimen(s): Portion of the right fallopian tube Procedure: The patient was brought to the operating room. A spinal was placed without any complications. She was then placed in left lateral tilt. Prepped and draped in the usual sterile manner. After testing for adequate anesthesia level, a Pfannenstiel incision was made. This incision was taken down to the fascia. The fascia was then nicked in the midline. This incision was extended out laterally with Isaacs scissors. The fascia was then sharply and bluntly from the underlying rectus muscles. The rectus muscles were bluntly and sharply . The peritoneum was then entered with the optical goods drill operator's fingers. This incision was spread vertically with care not to damage the bladder below. The Ismael self-retaining tractor was then placed without any difficulty. The bladder flap was then formed sharply and bluntly with Metzenbaum scissors. A transverse incision was made in lower uterine segment. This incision was extended laterally with the operators fingers. The amniotic sac was then entered bluntly with the optical goods drill operator's fingers. The was delivered from the vertex position. Bulb suction on the mother's abdomen. Cord was double clamped and cut. The infant was then passed to the nursery personnel who were in attendance. The above scores were given by the nursery personnel. The placenta was then bluntly removed. The uterus was then externalized and wiped clean the remaining products. The uterine incision was closed in layers. The first incision was closed in a locking manner using 0 Vicryl. This was followed by imbricating stitch also with 0 Vicryl. Attention was then switched to the patient's right fallopian tube. The fallopian tube was identified by its fimbriated end. A portion of the tube was grabbed with the Angelika clamp approximately 2-3 cm from the cornua. A avascular window through mesosalpinx naturally formed. I passed 2 ties through the opening and tied off the prximal and distal portion of the tubal segment with 0 catgut suture. The segment of tube were cut with Metzenbaum scissors. Each stump was found to be hemostatic and cauterized with the Bovie. The intervented mesosalpinx was sutured ing a locking stitch with 3-0 vicryl with good hemastasis. Attention was then switched back to the uterine closure. This closure was hemostatic. The bladder flap was copiously irrigated and found to be hemostatic. The pelvis was copiously irrigated and found to be hemostatic. The right tube was inspected again and found to be hemostatic. The uterus was then placed back to the patient's abdomen. Surgicel was placed along the uterine incision. The retractors were removed. The rectus muscles were inspected and found to be hemostatic. The fascia was then closed in a running manner using 0 Vicryl. This incision was hemostatic irrigation Bovie. The skin was reapproximated with 4-0 Vicryl subcuticularly. The patient tolerated procedure well. Her urine was clear. The was admitted to the NICU nursery. The patient was accompanied to recovery room in good condition. Instrument count correct times 3.
[2018-11-08] MEDS ORDERED: D5LR 1,000 ML IV SCH (21:40)
[2018-11-08] MEDS ORDERED: LANSINOH TP PRN (21:40)
[2018-11-08] MEDS ORDERED: MYLICON PO PRN (21:40)
[2018-11-08] MEDS ORDERED: TUCKS PAD TP PRN (21:40)
[2018-11-08] MEDS ORDERED: MILK OF MAGNESIA PO PRN (21:40)
[2018-11-08] MEDS ORDERED: SODIUM CHLORIDE FLUSH SYRINGE 10 ML IV NR (21:40)
--- NOTE | 2018-11-08 23:24 | Post Anesthesia Evaluation ---
- Post Anesthesia Evaluation Patient Participated: Yes Airway Patent: Yes Stable Respiratory Function: Yes Nausea/Vomiting: No Temp > 96.8F: Yes Pain Manageable: Yes Adequeate Hydration: Yes Anesthesia Complications: No Block Receding Appropriately: Yes Patient on Ventilator: No
[2018-11-09] MEDS: ANCEF/NS 1 GM/50 ML 1 GM/50 ML BAG IV SCH ×2 (02:40→10:44)
[2018-11-09] MEDS: TORADOL IV SCH ×3 (05:37→17:22)
[2018-11-09] MEDS ORDERED: BOOSTRIX IM ONE (06:00)
--- NOTE | 2018-11-09 08:21 | Progress Note ---
Assessment and Plan patient resting, ambulated this morning. VSSAF, H&H ordered for this morning. + flatus, dressing d&I. advance activity and diet as tolerated. - Patient Problems (1) delivery delivered Current Visit: Yes Status: Acute Plan to address problem: Lochia scant remove dressing this afternoon continue postop pathway Subjective - Subjective Date of service: 11/09/18 Principal diagnosis: postop day #1 s/p primary c/s w/ tubal Patient reports: appetite normal, voiding normally, pain well controlled, flatus, ambulating normally, no dizzy ambulation, no nauseated : in NICU Objective - Vital Signs Latest vital signs: Vital Signs Temp Pulse Resp BP Pulse Ox 11/09/18 04:59 98.2 F 69 18 95/50 99 11/08/18 22:03 78 100 11/08/18 21:15 98.2 F 18 90/46 11/08/18 20:21 98.9 F 69 15 116/51 100 11/08/18 20:05 75 17 88/64 100 11/08/18 19:50 75 14 79/44 100 11/08/18 19:35 64 18 84/34 100 11/08/18 19:30 75 13 79/24 98 11/08/18 19:25 68 18 76/51 100 11/08/18 19:20 97.7 F 65 15 98/50 100 11/08/18 16:43 67 111/60 11/08/18 16:28 75 113/65 11/08/18 16:15 75 110/71 11/08/18 16:00 97.9 F 20 11/08/18 15:59 71 118/68 11/08/18 15:44 80 112/58 11/08/18 15:28 67 99/56 11/08/18 15:13 61 109/58 11/08/18 14:59 64 111/58 11/08/18 14:43 77 120/57 11/08/18 14:29 70 125/61 11/08/18 14:14 62 95/50 11/08/18 14:00 66 121/50 11/08/18 13:38 68 100 11/08/18 13:33 70 100 11/08/18 13:29 64 97/50 11/08/18 13:28 65 100 11/08/18 13:23 78 100 11/08/18 13:20 98.7 F 10 L 11/08/18 13:18 89 100 11/08/18 13:13 72 99 11/08/18 13:08 76 98 11/08/18 12:28 63 98/50 11/08/18 12:16 70 127/54 11/08/18 12:14 98.0 F 11/08/18 10:59 98.5 F 72 20 104/57 11/08/18 10:46 78 107/51 11/08/18 10:29 85 117/57 Intake and Output 11/08/18 11/09/18 11/09/18 23:59 07:59 15:59 Intake Total 240 Output Total 400 400 Balance 1603.667 -160 Intake: IV 2002. PITOCin/NS 30 UNIT/500ML 3.667 30 units In 500 ml @ 4 MILLIUNITS/MIN 4 mls/hr IV Q30MIN [facility] Rx#: [id number] Oral 240 Output: Urine 400 400 Indwelling Catheter 400 Other: Total, Intake Amount 240 Total, Output Amount 100 - Exam Breasts: Present: normal Cardiovascular: Present: Regular rate Lungs: Present: Clear to auscultation, Normal air movement Abdomen: Present: normal appearance, soft Uterus: Present: normal, firm, fundal height at umbilicus Extremities: Present: normal Incision: Present: normal, dry, dressed
[2018-11-09 10:46] LABS: Hematocrit 29.8 % (30.3-42.9); Hemoglobin 9.8 gm/dl (10.1-14.3)
[2018-11-09] MEDS: FEOSOL PO SCH (10:46)
[2018-11-09] MEDS: PRENATAL VITAMIN PO SCH (10:47)
[2018-11-09] MEDS: IBUPROFEN PO PRN (23:42)
[2018-11-10] MEDS: IBUPROFEN PO PRN ×3 (08:28→22:21)
[2018-11-10] MEDS: PRENATAL VITAMIN PO SCH (09:58)
[2018-11-10] MEDS: FEOSOL PO SCH (09:58)
[2018-11-10] MEDS: COLACE PO SCH ×2 (09:58→22:21)
--- NOTE | 2018-11-10 10:20 | Discharge Summary ---
Providers - Providers Date of Admission: 11/07/18 02:16 Date of discharge: 11/10/18 Attending physician: SAEED LI 11/08/18 21:40 Consult to [employer] Controller [CONS] Routine Reason For Exam: Primary care physician: SAEED LI Hospitalization Reason for admission: PROM Condition: Good Pertinent studies: post delivery H&H 9.8/29.8, acute blood loss from delivery Procedures: primary c/s with BTL Hospital course: uncomplicated c/s and post op course Disposition: DC-01 TO HOME OR SELFCARE Core Measure Documentation - Palliative Care Palliative Care/ Comfort Measures: Not Applicable - Core Measures Any of the following diagnoses?: none Exam - Constitutional Vitals: Temp Pulse Resp BP Pulse Ox 98.6 F 65 18 98/52 100 11/10/18 07:50 11/10/18 07:50 11/10/18 07:50 11/10/18 07:50 11/10/18 07:50 General appearance: Present: no acute distress, well-nourished - EENT Eyes: Present: PERRL ENT: hearing intact, clear oral mucosa - Neck Neck: Present: supple, normal ROM - Respiratory Respiratory effort: normal Respiratory: bilateral: CTA - Cardiovascular Heart Sounds: Present: S1 & S2. Absent: rub, click - Extremities Extremities: pulses symmetrical, No edema Peripheral Pulses: within normal limits - Abdominal General gastrointestinal: Present: soft, non-tender, non-distended, normal bowel sounds Female genitourinary: Present: normal - Integumentary Integumentary: Present: clear, warm, dry - Musculoskeletal Musculoskeletal: gait normal, strength equal bilaterally - Psychiatric Psychiatric: appropriate mood/affect, intact judgment & insight - Neurologic Neurologic: CNII-XII intact, moves all extremities - Additional findings Additional findings: Fundus firm, ML, U/1. Incision is well-approximated, healing well, no bleeding or drainage, no s/s infection. Steri-strips in place. DWP proper hygiene practices for incision area. Vaginal bleeding is small, patient denies any heavy bleeding or clots. Patient reports pain is well controlled with medication. She denies any complaints or concerns. VSSAF. Reviewed recent labs with patient, she denies any dizziness or feeling faint with ambulation or position changes. Pt reports is going well, no breast complaints. She reports is doing well. Encouraged increase in water intake and continue ambulation and use of IS. Plan Activity: advance as tolerated Diet: regular Wound: open to air, keep clean and dry Follow up with: SAEED LI MD [Primary Care Provider] - 7 Days (Congratulations! Please call [phone] to schedule your post-op incision check in 1 week. Please schedule your son's circumcision appointment in 1 week. Bring EMLA cream prescription with you to his appointment and await further instructions for use. Call with any questions or concerns. ) Prescriptions: Docusate Sodium [Colace] 100 mg PO BID PRN #60 capsule PRN Reason: Constipation Lidocain2.5%/Prilocai2.5% [Emla] 5 gm TP ONCE #1 tube Ferrous Sulfate [Feosol 325 MG tab] 325 mg PO BID #60 tablet Ibuprofen [Motrin 800 MG tab] 800 mg PO Q6H PRN #30 tablet PRN Reason: Pain oxyCODONE /ACETAMINOPHEN [Percocet 5/325 mg] 1 - 2 tab PO Q4H PRN #25 tablet PRN Reason: Pain, Moderate
[2018-11-10] MEDS: NORCO 5/325 PO PRN ×2 (15:49→20:23)
--- NOTE | 2018-11-10 16:33 | Event Note ---
Date: 11/10/18 POD 2 patient elects to discharge home tomorrow vs today, as previously discussed, due to not being discharged today. Discharge order cancelled. RN notified, will inform patient that CNM will make rounds and discharge patient tomorrow morning.
[2018-11-11] MEDS: IBUPROFEN PO PRN (06:21)
[2018-11-11] MEDS: NORCO 5/325 PO PRN (06:22)
--- NOTE | 2018-11-11 08:00 | Discharge Summary ---
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] Routine Reason For Exam: Primary care physician: SAEED LI Hospitalization Reason for admission: PROM Condition: Good Procedures: primary c/s with tubal ligation Hospital course: uncomplicated c/s and postop course Disposition: - TO HOME OR SELFCARE - Discharge Diagnoses (1) delivery delivered Status: Acute Core Measure Documentation - Palliative Care Palliative Care/ Comfort Measures: Not Applicable - Core Measures Any of the following diagnoses?: none Exam - Constitutional Vitals: Temp Pulse Resp BP Pulse Ox 98.5 F 62 18 95/47 100 11/10/18 23:58 11/10/18 23:58 11/11/18 07:22 11/10/18 23:58 11/10/18 23:58 General appearance: Present: no acute distress, well-nourished - EENT Eyes: Present: PERRL ENT: hearing intact, clear oral mucosa - Neck Neck: Present: supple, normal ROM - Respiratory Respiratory effort: normal Respiratory: bilateral: CTA - Cardiovascular Heart Sounds: Present: S1 & S2. Absent: rub, click - Extremities Extremities: pulses symmetrical, No edema Peripheral Pulses: within normal limits - Abdominal General gastrointestinal: Present: soft, non-tender, non-distended, normal bowel sounds Female genitourinary: Present: normal - Integumentary Integumentary: Present: clear, warm, dry - Musculoskeletal Musculoskeletal: gait normal, strength equal bilaterally - Psychiatric Psychiatric: appropriate mood/affect, intact judgment & insight - Neurologic Neurologic: CNII-XII intact, moves all extremities - Additional findings Additional findings: incision D&I, lochia scant, fundus firm Plan Activity: advance as tolerated Diet: regular Wound: open to air, keep clean and dry Follow up with: SAEED LI MD [Primary Care Provider] - 7 Days (Congratulations! Please call [phone] to schedule your post-op incision check in 1 week. Please schedule your son's circumcision appointment in 1 week. Bring EMLA cream prescription with you to his appointment and await further instructions for use. Call with any questions or concerns. ) Prescriptions: Docusate Sodium [Colace] 100 mg PO BID PRN #60 capsule PRN Reason: Constipation Lidocain2.5%/Prilocai2.5% [Emla] 5 gm TP ONCE #1 tube Ferrous Sulfate [Feosol 325 MG tab] 325 mg PO BID #60 tablet Ibuprofen [Motrin 800 MG tab] 800 mg PO Q6H PRN #30 tablet PRN Reason: Pain oxyCODONE /ACETAMINOPHEN [Percocet 5/325 mg] 1 - 2 tab PO Q4H PRN #25 tablet PRN Reason: Pain, Moderate
[2018-11-11 10:36] VITALS: BP 104/49
[2018-11-11] MEDS: PRENATAL VITAMIN PO SCH (11:47)
[2018-11-11] MEDS: COLACE PO SCH (11:47)
[2018-11-11] MEDS: FEOSOL PO SCH (11:47)
== END 2018-11-11 11:55 | disposition home or self-care (01) | DRG 783 ==
LOC: TRG 01:53 → LD 02:16 → APU 11-08 17:46 → OB 11-08 21:20
PROVIDERS: ADMIT Obstetrics & Gynecology; ATTEND Obstetrics & Gynecology
PROC: 10D00Z1 Extraction of Products of Conception, Low, Open Approach (ICD-10-PCS; principal; 2018-11-08)
PROC: 0UB50ZZ Excision of Right Fallopian Tube, Open Approach (ICD-10-PCS; 2018-11-08)
PROC: 10H00YZ Insertion of Other Device into Products of Conception, Open Approach (ICD-10-PCS; 2018-11-08)
PROC: 3E0234Z Introduction of Serum, Toxoid and Vaccine into Muscle, Percutaneous Approach (ICD-10-PCS; 2018-11-09)
DX: O42.013 Preterm premature rupture of membranes, onset of labor within 24 hours of rupture, third trimester (principal); O60.14X0 Preterm labor third trimester with preterm delivery third trimester, not applicable or unspecified; O76 Abnormality in fetal heart rate and rhythm complicating labor and delivery; O34.13 Maternal care for benign tumor of corpus uteri, third trimester; D25.9 Leiomyoma of uterus, unspecified; Z3A.34 34 weeks gestation of pregnancy; Z37.0 Single live birth; Z23 Encounter for immunization
CPT/HCPCS: 36415; 76815; 76816; 81001; 85007; 85014; 85018; 85025; 86592; 86850; 86870; 86900; 86901; 87086; 88302; 90471; 90715; G0378; J0290; J0690; J0702; J1170; J1885; J2370; J2590; J2765; J7120; J7121

== ENCOUNTER 2020-07-10 10:19 | Outpatient (CLI) | payer BC ==
--- NOTE | 2020-07-10 15:50 | Mammography Report ---
DIGITAL SCREENING MAMMOGRAM WITH CAD, 07/10/2020 CLINICAL INFORMATION / INDICATION: Routine screening mammography. TECHNIQUE: Digital bilateral 2D mammography was obtained in the craniocaudal and mediolateral obliqu e projections. This examination was interpreted with the benefit of Computer-Aided Detection analysis . COMPARISON: None, baseline FINDINGS: Breast Density: The breasts are heterogeneously dense, which may obscure small masses. No dominant mass, suspicious calcifications, or architectural distortion in the right breast. In the central mid depth of the left breast at 11:30 possible focal area of architectural distortion is seen. IMPRESSION: Possible architectural distortion on the left Follow up recommendation: Left spot compression views and ultrasound if needed BI-RADS Category 0: Incomplete. Needs additional imaging evaluation and/or prior mammograms for rossy brayanon. A "normal" or negative report should not discourage follow up or biopsy of a clinically significant f inding. A written summary of these findings will be mailed to the patient. The patient will be entered into a mammography reporting system which will generate a reminder letter for the patient's next appointmen t at the appropriate interval. The [employer] recommends yearly mammograms starting at age 40 and continuing as l dionna as a woman is in good health. Breast MRI is recommended for women with an approximate 20-25% or greater lifetime risk of breast cancer, including women with a strong family history of breast or ova terrie cancer or who have been treated for Hodgkin's disease. Signer Name: Steven Willoughby MD Signed: 07/10/2020 3:46 PM Workstation Name: [id number]
== END 2020-07-10 10:20 | disposition home or self-care (01) ==
LOC: MAMMO 10:19
PROVIDERS: ATTEND Obstetrics & Gynecology
DX: Z12.31 Encounter for screening mammogram for malignant neoplasm of breast (principal)
CPT/HCPCS: 77067